=== PATIENT | male | born 1960 | race African-American/Black ===

== ENCOUNTER 2019-03-13 18:48 | Emergency (ER) | payer BC, OTHER ==
[~2019-03-13] VITALS: Ht 195.6 cm; Wt 108.4 kg
[~2019-03-13 18:48] MED LIST: ASPI-482 PO; ASPI325T8 PO; ATOR20TA PO; GLYB5TAB3 PO; METO25TA4 PO; NITR0.4T22 SL; TICA90TA PO
[2019-03-13] MEDS ORDERED: IV NORMAL SALINE 1000ML BAG 1,000 ML IV SCH (19:19)
--- NOTE | 2019-03-13 19:19 | PHYS DOC ---
Past Medical History Past Medical History: CAD Past Surgical History: Other Additional Past Surgical Histo: stent Alcohol Use: None Drug Use: None Adult General Chief Complaint Chief Complaint: LOWER EXT PAIN HPI HPI 58-year-old male with underlying history of diabetes, hypertension, hyperlipidemia presents to the emergency department with complaints of left foot wound. Patient describes pain to his left heel, draining of fluid. He denies any fever however has had some body aches and chills. Patient states he noticed that his foot was wet yesterday in his shoe with increasing pain last night. Patient states is difficult to walk. Patient states he's had infection in the foot before. The area is discolored, some redness appreciated. No significant odor pressure on examination. Ambulation makes his pain worse. Review of Systems Review of Systems Constitutional: Chills Respiratory: Denies cough or shortness of breath [] Cardiovascular: No additional information not addressed in HPI [] GI: Denies abdominal pain, nausea, vomiting, bloody stools or diarrhea [] Musculoskeletal: Denies back pain or joint pain, left heel with evidence of skin breakdown, there is drainage from his foot, there is right discoloration of the skin as well as some erythema appreciated to the heel. No definite ulcer appreciated. Wound however is present [] Integument: Denies rash or skin lesions [] Neurologic: Denies headache, focal weakness or sensory changes [] All other systems were reviewed and found to be within normal limits, except as documented in this note. Current Medications Current Medications Current Medications Medications (Trade) Dose Ordered Sig/Lukas Start Time Stop Time Status Last Admin Dose Admin Sodium Chloride 1,000 ml @ 1,000 mls/hr Q1H 03/13/19 19:19 03/13/19 20:18 DC 03/13/19 19:32 1,000 MLS/HR Allergies Allergies Allergies Coded Allergies Type Severity Reaction Last Updated Verified No Known Drug Allergies 11/23/13 No Physical Exam Physical Exam Constitutional: Well developed, well nourished, no acute distress, non-toxic appearance. [] HENT: Normocephalic, atraumatic, bilateral external ears normal, oropharynx moist, no oral exudates, nose normal. [] Eyes: PERRLA, EOMI, conjunctiva normal, no discharge. [] Neck: Normal range of motion, no tenderness, supple, no stridor. [] Cardiovascular:Heart rate regular rhythm, no murmur [] Lungs & Thorax: Bilateral breath sounds clear to auscultation [] Abdomen: Bowel sounds normal, soft, no tenderness, no masses, no pulsatile masses. [] Skin: Warm, dry, no erythema, no rash. [] Back: No tenderness, no CVA tenderness. [] Extremities: No tenderness, no cyanosis, no clubbing, ROM intact, no edema. [] Neurologic: Alert and oriented X 3, normal motor function, normal sensory function, no focal deficits noted. [] Psychologic: Affect normal, judgement normal, mood normal. [] Current Patient Data Vital Signs Vital Signs Date Time Temp Pulse Resp B/P (MAP) Pulse Ox O2 Delivery O2 Flow Rate FiO2 03/13/19 20:15 68 150/70 (96) 97 Room Air 03/13/19 19:02 98.1 20 98.1 Lab Values Laboratory Tests Test 03/13/19 19:25 03/13/19 20:15 White Blood Count 5.7 x10^3/uL (4.0-11.0) Red Blood Count 5.24 x10^6/uL (4.30-5.70) Hemoglobin 13.9 g/dL (13.0-17.5) Hematocrit 42.6 % (39.0-53.0) Mean Corpuscular Volume 81 fL (79-100) Mean Corpuscular Hemoglobin 26 pg (25-35) Mean Corpuscular Hemoglobin Concent 33 g/dL (31-37) Red Cell Distribution Width 14.9 % (11.5-14.5) H Platelet Count 122 x10^3/uL (140-400) L Neutrophils (%) (Auto) 57 % (31-73) Lymphocytes (%) (Auto) 23 % (24-48) L Monocytes (%) (Auto) 8 % (0-9) Eosinophils (%) (Auto) 11 % (0-3) H Basophils (%) (Auto) 1 % (0-3) Neutrophils # (Auto) 3.2 x10^3/uL (1.8-7.7) Lymphocytes # (Auto) 1.3 x10^3/uL (1.0-4.8) Monocytes # (Auto) 0.5 x10^3/uL (0.0-1.1) Eosinophils # (Auto) 0.6 x10^3/uL (0.0-0.7) Basophils # (Auto) 0.0 x10^3/uL (0.0-0.2) Sodium Level 141 mmol/L (136-145) Potassium Level 4.0 mmol/L (3.5-5.1) Chloride Level 105 mmol/L (98-107) Carbon Dioxide Level 26 mmol/L (21-32) Anion Gap 10 (6-14) Blood Urea Nitrogen 18 mg/dL (8-26) Creatinine 1.1 mg/dL (0.7-1.3) Estimated GFR (Cockcroft-Gault) 82.9 BUN/Creatinine Ratio 16 (6-20) Glucose Level 157 mg/dL (70-99) H Lactic Acid Level 0.8 mmol/L (0.4-2.0) Calcium Level 9.0 mg/dL (8.5-10.1) Total Bilirubin 0.3 mg/dL (0.2-1.0) Aspartate Amino Transferase (AST) 11 U/L (15-37) L Alanine Aminotransferase (ALT) 19 U/L (16-63) Alkaline Phosphatase 55 U/L (46-116) Total Protein 7.0 g/dL (6.4-8.2) Albumin 3.5 g/dL (3.4-5.0) Albumin/Globulin Ratio 1.0 (1.0-1.7) Urine Collection Type Unknown Urine Color Yellow Urine Clarity Clear Urine pH 5.0 Urine Specific [place] >=1.030 Urine Protein 30 mg/dL (NEG-TRACE) Urine Glucose (UA) >=1000 mg/dL (NEG) Urine Ketones (Stick) Negative mg/dL (NEG) Urine Blood Small (NEG) Urine Nitrite Negative (NEG) Urine Bilirubin Negative (NEG) Urine Urobilinogen Dipstick 0.2 mg/dL (0.2 mg/dL) Urine Leukocyte Esterase Negative (NEG) Urine RBC 1-2 /HPF (0-2) Urine WBC 0 /HPF (0-4) Urine Squamous Epithelial Cells Occ /LPF Urine Bacteria 0 /HPF (0-FEW) Urine Mucus Slight /LPF Laboratory Tests 03/13/19 19:25 Laboratory Tests 03/13/19 19:25 EKG EKG [] Radiology/Procedures Radiology/Procedures [] Course & Med Decision Making Course & Med Decision Making Pertinent Labs and Imaging studies reviewed. (See chart for details) []58-year-old male with underlying history of diabetes, hypertension, hyperlipidemia presents to the emergency department with complaints of left foot wound. Patient describes pain to his left heel, draining of fluid. He denies any fever however has had some body aches and chills. Patient states he noticed that his foot was wet yesterday in his shoe with increasing pain last night. Patient states is difficult to walk. Patient states he's had infection in the foot before. The area is discolored, some redness appreciated. No significant odor pressure on examination. Ambulation makes his pain worse. Labs reviewed, white blood cell count 5.7, lactic acid within normal limits. Metabolic profile reviewed without acute concern. X-ray reveals evidence of no acute bony abnormality, there is no concern for abscess appreciated. Test with patient we'll plan for antibiotic therapy and close follow-up with his primary care physician as an outpatient. Bactrim DS provided x 5 days Recommend close follow up with PCP Return precautions provided Dragon Disclaimer Dragon Disclaimer This electronic medical record was generated, in whole or in part, using a voice recognition dictation system. Departure Departure Impression: Primary Impression: Heel pain Additional Impression: Open wound without complication Disposition: 01 HOME, SELF-CARE Condition: STABLE Referrals: KATE BUCIO MD (PCP) Patient Instructions: Diabetes and Foot Care Additional Instructions: Recommend follow up with PCP 3 - 5 days Return to the ER with worsening symptoms, intractable pain, fever, altered mental status Tylenol/Motrin as needed for pain Take antibiotics as directed Recommend close follow up with PCP as outpatient Scripts Hydrocodone/Apap 5-325 (NORCO 5-325 TABLET) 1 Each Tablet 1 TAB PO PRN Q6HRS PRN for PAIN, #10 TAB 0 Refills Prov: NICOLETTE CHACKO MD 03/13/19 Sulfamethoxazole/Trimethoprim (BACTRIM DS TABLET) 1 Each Tablet 1 TAB PO BID for infection for 5 Days, #10 TAB Prov: NICOLETTE CHACKO MD 03/13/19 Problem Qualifiers Primary Impression: Heel pain Laterality: left Qualified Codes: M79.672 - Pain in left foot NICOLETTE CHACKO MD Mar 13, 2019 19:19
[2019-03-13 19:41] LABS: BASO % 1 % (0-3); EOS # 0.6 x10^3/uL (0.0-0.7); EOS % 11 % (0-3); HEMATOCRIT 42.6 % (39.0-53.0); HEMOGLOBIN 13.9 g/dL (13.0-17.5); LYMPH # 1.3 x10^3/uL (1.0-4.8); LYMPH % 23 % (24-48); MEAN CORPUSCULAR HEMOGLOBIN 26 pg (25-35); MEAN CORPUSCULAR HGB CONC 33 g/dL (31-37); MEAN CORPUSCULAR VOLUME 81 fL (79-100); MONO # 0.5 x10^3/uL (0.0-1.1); MONO % 8 % (0-9); NEUT # 3.2 x10^3/uL (1.8-7.7); NEUT % 57 % (31-73); PLATELET COUNT 122 x10^3/uL (140-400); RED BLOOD COUNT 5.24 x10^6/uL (4.30-5.70); RED CELL DISTRIBUTION WIDTH 14.9 % (11.5-14.5); WHITE BLOOD COUNT 5.7 x10^3/uL (4.0-11.0)
[2019-03-13 19:50] LABS: CREATININE 1.1 mg/dL (0.7-1.3); GFR 82.9
[2019-03-13 19:55] LABS: ALBUMIN 3.5 g/dL (3.4-5.0); TOTAL BILIRUBIN 0.3 mg/dL (0.2-1.0)
[2019-03-13 20:25] LABS: BILIRUBIN,URINE NEGATIVE (NEG); COLOR,URINE YELLOW; NITRITE,URINE NEGATIVE (NEG); PROTEIN,URINE 30 mg/dL (NEG-TRACE); UROBILINOGEN,URINE 0.2 mg/dL (0.2 mg/dL)
[2019-03-13 20:31] LABS: CLARITY,URINE CLEAR; SQUAMOUS EPITHELIAL CELL,UR OCC /LPF
[2019-03-13 20:32] LABS: BACTERIA,URINE 0 /HPF (0-FEW); WBC,URINE 0 /HPF (0-4)
[2019-03-13 20:45] VITALS: BP 145/79
[2019-03-13] MEDS ORDERED: SULF1TAB24 PO (20:46)
[2019-03-13] MEDS ORDERED: HYDR-3164 PO (20:46)
[2019-03-13] MEDS ORDERED: HYDROcodone/APAP 5/325MG 1 TAB TABLET PO ONE (21:00)
--- NOTE | 2019-03-13 22:18 | RAD ---
Study: FOOT LEFT 2V Indication: Foot wound. Diabetes. Comparison: None. Findings: Smooth periosteal new bone formation on the lateral margin of the fourth metatarsal shaft. No destructive osseous changes seen throughout the foot. No acute fracture. Os tibiale externum. The reported foot wound is not well characterized by radiography. Impression: No radiographic manifestations of active osteomyelitis. Smooth periosteal bone formation along the lateral margin of the fourth metatarsal shaft appears chronic. The reported foot wound is not well delineated by radiography. As warranted by clinical concern, MRI would be more sensitive for detection of osteomyelitis. Electronically signed by: RHYS MISTRY MD (03/13/2019 10:15 PM) [id number]
== END 2019-03-13 21:10 | disposition home or self-care (01) ==
LOC: ER 18:48
DX: S91.302A Unspecified open wound, left foot, initial encounter (principal); I25.10 Atherosclerotic heart disease of native coronary artery without angina pectoris; X58.XXXA Exposure to other specified factors, initial encounter; Y93.89 Activity, other specified; Y92.89 Other specified places as the place of occurrence of the external cause; Y99.8 Other external cause status
CPT/HCPCS: 36415; 73620; 80053; 81001; 83605; 85025; 87040; 99285; J7030

== ENCOUNTER → 2019-05-27 | Outpatient (CLI) | payer BC ==
[~2019-05-27] MED LIST changes: +HYDR-3164 PO; +SULF1TAB24 PO
--- NOTE | 2019-05-27 11:20 | KCIC ---
EXAM: CHEST PA LATERAL INDICATION: Cough. TECHNIQUE: PA and lateral views of the chest COMPARISON: 02/13/2015 chest x-ray FINDINGS: The heart size is normal. The great vessels appear unremarkable. There is no hilar or mediastinal mass. The lungs are clear. There is no pleural effusion or pneumothorax. There are no significant osseous abnormalities. IMPRESSION: No active cardiopulmonary disease. Electronically signed by: Kayla Myers MD (05/27/2019 11:17 AM) [facility]
== END ==
LOC: KCIC 08:49
PROVIDERS: ATTEND Nurse Practitioner Gerontology
DX: R05 Cough (principal)
CPT/HCPCS: 71046